=== PATIENT | male | born 2000 | race Caucasian/White ===

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

== ENCOUNTER → 2020-03-16 | Outpatient (CLI) | payer MEDICAID ==
[~2020-03-16] MED LIST changes: +CYCL10TA9 PO; +PRD20T PO
--- NOTE | 2020-03-16 15:37 | Diagnostic Imaging Report ---
EXAMINATION: CT of the temporal bones without contrast. INDICATION: Disequilibrium. Loss of balance. Dizziness. COMPARISON: None. TECHNIQUE: Thin section helical CT was performed through the temporal bones without contrast and reformatted into coronal and sagittal planes. Dose reduction techniques were utilized. FINDINGS: On the right, the external auditory canal is patent. There is no evidence of thickening of the tympanic membrane. The ossicles on the right appear intact. There is no evidence of soft tissue identified within the middle ear. There is no evidence of bony erosion. The scutum appears intact. The tegmen tympani and tegmen mastoideum are intact. The internal auditory canal is of normal size. The course of the facial nerve is normal. There is no evidence of jugular bulb dehiscence. There is no aberrancy of the right internal carotid artery. The mastoid air cells are clear. The semicircular canals, cochlea and vestibule demonstrate normal CT appearances. There is no enlargement of the vestibular aqueduct. On the left, the external auditory canal is patent. There is no evidence of thickening of the tympanic membrane. The ossicles on the left appear intact. There is no evidence of soft tissue identified within the middle ear. There is no evidence of bony erosion. The scutum appears intact. The tegmen tympani and tegmen mastoideum are intact. The internal auditory canal is of normal size. The course of the facial nerve is normal. There is no evidence of jugular bulb dehiscence. There is no aberrancy of the left internal carotid artery. The mastoid air cells are clear. The semicircular canals, cochlea and vestibule demonstrate normal CT appearances. There is no enlargement of the vestibular aqueduct. Visualized intracranial contents demonstrate no evidence of mass effect. The basilar cisterns are patent. Temporomandibular joints are within normal limits. IMPRESSION: 1. Unremarkable CT appearance of the bilateral middle and inner ear structures. No acute abnormalities are present. Dictated by: Dictated on workstation # [id number]
== END ==
LOC: RAD 14:43
PROVIDERS: ATTEND Otolaryngology Otolaryngology/Facial Plastic Surgery
DX: R42 Dizziness and giddiness (principal)
CPT/HCPCS: 70480

== ENCOUNTER → 2020-07-31 | Outpatient (CLI) | payer MEDICAID | LOC: CARD 14:42 | PROVIDERS: ATTEND Internal Medicine Cardiovascular Disease | DX: I25.10 Atherosclerotic heart disease of native coronary artery without angina pectoris (principal); I10 Essential (primary) hypertension | CPT/HCPCS: 93306 ==

== ENCOUNTER → 2020-09-02 | Outpatient (CLI) | payer MEDICAID ==
[2020-09-02] VITALS (14 sets, daily range): BP systolic 70–130; BP diastolic 49–91
[~2020-09-02] VITALS: Ht 183 cm; Wt 107.0 kg
[~2020-09-02] MED LIST changes: +NS IV 1000 ML 1,000 ML IV SCH
--- NOTE | 2020-09-03 08:37 | Cardiology Tilt Table Test ---
Cardiology-Tilt Table Test Tilt Table Test Date 09/03/20 Baseline Vitals Vital Signs Date Time Temp Pulse Resp B/P (MAP) Pulse Ox O2 Delivery O2 Flow Rate FiO2 09/02/20 14:10 36.1 71 19 129/86 (100) 98 Room Air Vital Signs VS - Last 72 Hours, by Label 09/02/20 09/02/20 09/02/20 09/02/20 14:10 14:20 14:25 14:28 Temp 36.1 Pulse 71 91 90 107 Resp 19 B/P (MAP) 129/86 (100) 120/91 (101) 121/86 (98) 123/91 (102) Pulse Ox 98 98 97 97 O2 Delivery Room Air 09/02/20 09/02/20 09/02/20 09/02/20 14:30 14:31 14:32 14:35 Pulse 93 79 89 101 B/P (MAP) 130/87 (101) 130/83 (99) 128/86 (100) 119/73 (88) Pulse Ox 97 98 95 09/02/20 09/02/20 09/02/20 09/02/20 14:36 14:41 14:42 14:43 Pulse 133 93 94 B/P (MAP) 111/89 (96) 102/72 (82) 70/49 (56) 101/70 (80) 09/02/20 09/02/20 14:49 14:51 Pulse 79 82 B/P (MAP) 117/74 (88) 123/70 (87) Pulse Ox 95 Patient was tilted to 75 degrees for [10] minutes, then returned to supine position, given [2] sublingual nitroglycerin tablets, then tilted again to 75 degrees for [15] minutes. During test, patient was: symptomatic (with dizziness and near syncope. ) In Conclusion;: Negative Tilt Table Test (Patient became symptomatic during stage 2, with dizziness, diaphoresis, near syncope with BP 70/49, HR 133. No syncope. ) Instructed to increase fluid and salt intake, use INDERJIT hose. Follow up in our office in 1 month. This is Tabitha Beal PA-C, as a scribe for Dr. Matute. TABITHA CLINE Sep 03, 2020 08:37
== END ==
LOC: CARD 14:30
PROVIDERS: ATTEND Internal Medicine Cardiovascular Disease
DX: I10 Essential (primary) hypertension (principal); R42 Dizziness and giddiness
CPT/HCPCS: 93660